=== PATIENT | female | born 1990 | race Caucasian/White ===

== ENCOUNTER 2017-05-03 20:07 | Emergency (ER) | payer OTHER, BC ==
[~2017-05-03] VITALS: Ht 162.6 cm; Wt 54.1 kg
[2017-05-03] MEDS ORDERED: LABETALOL HCL 100 MG/20 ML VIAL IV STA (20:44)
[2017-05-03] MEDS ORDERED: ACETAMINOPHEN TAB 650MG DOSE (2X325MG) PO ONE (20:45)
[2017-05-03 21:14] LABS: BASO % 0.4 % (0.0-1.0); EOS # 0.1 10^3/uL (0.0-0.50); EOS % 0.8 % (0.0-3.0); IMMATURE GRANULOCYTE % 0.3 % (0-0); LYMPH % 27.2 % (24.0-44.0); MEAN CORPUSCULAR HEMOGLOBIN 31.4 pg (27.0-33.0); MEAN CORPUSCULAR HGB CONC 34.4 g/dl (32.0-36.5); MEAN CORPUSCULAR VOLUME 91.3 fl (80.0-96.0); MONO # 0.7 10^3/uL (0.0-0.8); MONO % 9.8 % (0.0-5.0); NEUTROPHILS # 4.4 10^3/uL (1.8-7.7); NEUTROPHILS % 61.5 % (36.0-66.0); PLATELET COUNT, AUTOMATED 312 10^3/uL (150-450); WHITE BLOOD COUNT 7.2 10^3/uL (4.0-10.0)
[2017-05-03 21:32] LABS: CONTROL LINE HCG INT CTR LINE PRESENT
[2017-05-03 21:47] LABS: ANION GAP 10 MEQ/L (8-16); BLOOD UREA NITROGEN 18 MG/DL (7-18); CALCIUM LEVEL 9.3 MG/DL (8.5-10.1); CARBON DIOXIDE LEVEL 23 MEQ/L (21-32); CHLORIDE LEVEL 108 MEQ/L (98-107); GLOMERULAR FILTRATION RATE > 60.0 (>60); GLUCOSE, FASTING 103 MG/DL (70-105); POTASSIUM SERUM 3.5 MEQ/L (3.5-5.1); SODIUM LEVEL 141 MEQ/L (136-145)
[2017-05-03] MEDS ORDERED: ALPRAZolam 0.25 MG TAB PO ONE (22:15)
[2017-05-03] MEDS ORDERED: hydrALAZINE INJ 20 MG/ML VIAL IV ONE (23:00)
[2017-05-03] MEDS ORDERED: TENO1TAB3 PO (23:24)
[2017-05-03] MEDS ORDERED: ATENOLOL 25 MG TAB PO ONE (23:30)
[2017-05-03 23:40] VITALS: BP 187/103
[2017-05-03 23:44] VITALS: BP 167/93
--- NOTE | 2017-05-04 08:23 | REP ---
PA and lateral chest: There are no comparisons. The lung sanchez are clear. The cardiac size is normal The stephane, mediastinum, and bony thorax are unremarkable except for mild thoracic scoliosis. Impression: Negative PA and lateral chest. There is mild thoracic scoliosis. Signed by Edgar Salvador MD 05/04/2017 08:15 A
--- NOTE | 2017-05-04 09:11 | ECGEPIP ---
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
== END 2017-05-03 23:51 | disposition home or self-care (01) ==
LOC: M ED 20:07
DX: I10 Essential (primary) hypertension (principal)

== ENCOUNTER → 2017-07-31 | Outpatient (CLI) | payer BC, OTHER | LOC: M RAD 10:18 | DX: S12.691D Other nondisplaced fracture of seventh cervical vertebra, subsequent encounter for fracture with routine healing (principal); X58.XXXD Exposure to other specified factors, subsequent encounter | CPT/HCPCS: 72141 ==

== ENCOUNTER → 2017-08-17 | Outpatient (REF) | payer BC, OTHER | LOC: M SFHCLERA 15:39 | DX: R11.2 Nausea with vomiting, unspecified (principal) | CPT/HCPCS: 87086; Q9958 ==

== ENCOUNTER → 2018-04-13 | Outpatient (CLI) | payer OTHER | LOC: M LRY 11:45 | DX: R05 Cough (principal) ==

== ENCOUNTER → 2018-10-17 | Outpatient (CLI) | payer OTHER ==
[~2018-10-17] MED LIST: TENO1TAB3 PO
[2018-10-17 11:30] LABS: BASO % 0.4 % (0.0-1.0); EOS # 0.2 10^3/uL (0.0-0.50); HEMOGLOBIN 13.1 g/dl (12.0-15.5); LYMPH # 2.2 10^3/uL (1.5-6.5); LYMPH % 29.7 % (24.0-44.0); MEAN CORPUSCULAR HGB CONC 32.8 g/dl (32.0-36.5); MEAN CORPUSCULAR VOLUME 94.6 fl (80.0-96.0); MONO # 0.5 10^3/uL (0.0-0.8); MONO % 7.1 % (0.0-5.0); NEUTROPHILS # 4.5 10^3/uL (1.8-7.7); NEUTROPHILS % 60.7 % (36.0-66.0); PLATELET COUNT, AUTOMATED 264 10^3/uL (150-450); RED BLOOD COUNT 4.23 10^6/uL (4.00-5.40); WHITE BLOOD COUNT 7.4 10^3/uL (4.0-10.0)
[2018-10-17 11:49] LABS: ALBUMIN 3.9 GM/DL (3.2-5.2); ALT/SGPT 28 U/L (12-78); BILIRUBIN,TOTAL 0.4 MG/DL (0.2-1.0); BLOOD UREA NITROGEN 15 MG/DL (7-18); CALCIUM LEVEL 8.8 MG/DL (8.5-10.1); CARBON DIOXIDE LEVEL 25 MEQ/L (21-32); CHLORIDE LEVEL 110 MEQ/L (98-107); CORTISOL AM 19.9 UG/DL (4.3-22.4); CREATININE FOR GFR 0.87 MG/DL (0.55-1.30); FREE T3 2.7 PG/ML (2.2-4.0); FREE T4 0.93 NG/DL (0.76-1.46); GLOMERULAR FILTRATION RATE > 60.0 (>60); GLUCOSE, FASTING 83 MG/DL (70-100); POTASSIUM SERUM 4.1 MEQ/L (3.5-5.1); SODIUM LEVEL 140 MEQ/L (136-145); TOTAL 25(OH) VITAMIN D 20.7 NG/ML (30.0-100.0); TOTAL PROTEIN 6.5 GM/DL (6.4-8.2); VITAMIN B12 LEVEL 482 PG/ML (247-911)
== END ==
LOC: M LRY 08:29
PROVIDERS: ATTEND Nurse Practitioner Pediatrics
DX: F33.1 Major depressive disorder, recurrent, moderate (principal); F41.1 Generalized anxiety disorder

== ENCOUNTER → 2018-12-29 | Outpatient (CLI) | payer OTHER ==
[2018-12-29 17:13] LABS: C REACTIVE PROTEIN QUANTITATIV < 0.30 MG/DL (0.00-0.30); RHEUMATOID FACTOR QUANT < 10.0 IU/ML (<15.0)
[2018-12-29 17:17] LABS: BASO # 0.1 10^3/uL (0.0-0.2); BASO % 0.6 % (0.0-1.0); EOS # 0.1 10^3/uL (0.0-0.50); EOS % 1.6 % (0.0-3.0); HEMATOCRIT 44.4 % (36.0-47.0); HEMOGLOBIN 14.6 g/dl (12.0-15.5); LYMPH # 2.2 10^3/uL (1.5-6.5); LYMPH % 24.4 % (24.0-44.0); MEAN CORPUSCULAR HGB CONC 32.9 g/dl (32.0-36.5); MEAN CORPUSCULAR VOLUME 97.4 fl (80.0-96.0); MONO # 0.6 10^3/uL (0.0-0.8); NEUTROPHILS # 5.9 10^3/uL (1.8-7.7); NEUTROPHILS % 66.2 % (36.0-66.0); PLATELET COUNT, AUTOMATED 292 10^3/uL (150-450); RED BLOOD COUNT 4.56 10^6/uL (4.00-5.40); WHITE BLOOD COUNT 8.9 10^3/uL (4.0-10.0)
[2018-12-29 18:50] LABS: ERYTHROCYTE SEDIMENTATION RATE 3 mm/hr (0-20)
[2019-01-02 00:07] LABS: ANTI DOUBLE STRAND-DNA AB <1 IU/mL (0-9); ANTINUCLEAR ANTIBODIES DIRECT Positive (Negative); CYCLIC CITRULLINATED PEPTIDE 29 units (0-19); Lyme Disease IgG/IgM Antibodie <0.91 ISR (0.00-0.90); Lyme Disease IgM Ab Quantitati <0.80 index (0.00-0.79); RNP ANTIBODIES >8.0 AI (0.0-0.9); SJOGREN'S ANTI SS-A <0.2 AI (0.0-0.9); SJOGREN'S ANTI SS-B <0.2 AI (0.0-0.9); SMITH ANTIBODIES <0.2 AI (0.0-0.9)
== END ==
LOC: M SMT 13:38
PROVIDERS: ATTEND Physician Assistant
DX: A69.20 Lyme disease, unspecified (principal)

== ENCOUNTER 2019-01-19 20:47 | Emergency (ER) | payer OTHER ==
[~2019-01-19] VITALS: Ht 162.6 cm; Wt 56.8 kg
[2019-01-19] MEDS ORDERED: AMBI5TAB PO (21:06)
[2019-01-19] MEDS ORDERED: ALPR0.5T3 PO (21:06)
[2019-01-19] MEDS ORDERED: VITAD1000T PO (21:06)
[2019-01-19] MEDS ORDERED: BRIN10TA4 PO (21:06)
[2019-01-19] MEDS ORDERED: FISH1000 PO (21:06)
[2019-01-19] MEDS ORDERED: LABE100T36 PO (21:06)
[2019-01-20] MEDS ORDERED: NS 1,000 ML IV ONE (01:30)
[2019-01-20] MEDS ORDERED: ONDANSETRON 4MG/2ML VIAL (J2405) IV ONE (01:30)
[2019-01-20] MEDS ORDERED: KETOROLAC 30 MG/ML VIAL (J1885) IV ONE (01:30)
[2019-01-20 02:04] LABS: BASO % 0.2 % (0.0-1.0); EOS # 0.1 10^3/uL (0.0-0.50); EOS % 0.9 % (0.0-3.0); HEMATOCRIT 36.4 % (36.0-47.0); HEMOGLOBIN 12.1 g/dl (12.0-15.5); LYMPH # 2.1 10^3/uL (1.5-6.5); LYMPH % 22.9 % (24.0-44.0); MEAN CORPUSCULAR HEMOGLOBIN 32.3 pg (27.0-33.0); MEAN CORPUSCULAR HGB CONC 33.2 g/dl (32.0-36.5); MEAN CORPUSCULAR VOLUME 97.1 fl (80.0-96.0); MONO % 10.9 % (0.0-5.0); NEUTROPHILS % 64.9 % (36.0-66.0); PLATELET COUNT, AUTOMATED 239 10^3/uL (150-450); RED BLOOD COUNT 3.75 10^6/uL (4.00-5.40); WHITE BLOOD COUNT 9.2 10^3/uL (4.0-10.0)
[2019-01-20 02:20] LABS: HCG, SERUM QUALITATIVE NEGATIVE (NEGATIVE)
[2019-01-20 02:28] LABS: BLOOD UREA NITROGEN 13 MG/DL (7-18); CARBON DIOXIDE LEVEL 28 MEQ/L (21-32); CHLORIDE LEVEL 110 MEQ/L (98-107); CREATININE FOR GFR 0.85 MG/DL (0.55-1.30); GLOMERULAR FILTRATION RATE > 60.0 (>60); GLUCOSE, FASTING 89 MG/DL (70-100); POTASSIUM SERUM 3.7 MEQ/L (3.5-5.1); SODIUM LEVEL 144 MEQ/L (136-145)
[2019-01-20 02:29] LABS: ALBUMIN 3.7 GM/DL (3.2-5.2); ALT/SGPT 15 U/L (12-78); BILIRUBIN,DIRECT < 0.1 MG/DL (0.0-0.2); BILIRUBIN,TOTAL 0.2 MG/DL (0.2-1.0); TOTAL PROTEIN 6.4 GM/DL (6.4-8.2)
[2019-01-20] MEDS ORDERED: ISOVUE-370 76% 100ML VIAL (Q9967) As Ordered ONE (02:39)
[2019-01-20] MEDS ORDERED: ceFAZolin SOD 1 GM in D5W MINI-BAG PLUS 50 ML IV ONE (03:00)
[2019-01-20] MEDS ORDERED: ACETAMINOPHEN 325 MG TAB PO ONE (04:15)
--- NOTE | 2019-01-20 04:22 | REPVR ---
EXAM: CT Left Lower Extremity With Contrast, Knee EXAM DATE/TIME: 01/20/2019 2:49 AM CLINICAL HISTORY: 28 years old, female; Cellulitis; Knee; Left; Additional info: Cellulitis, concern septic joint, pls use contrast. 100ml of isovue [address] was injected [address] left knee with contrast TECHNIQUE: Imaging protocol: CT of the Left lower extremity with intravenous contrast was performed. Exam focused on the knee. Coronal and sagittal reformatted images were created and reviewed. Radiation optimization: All CT scans at this facility use at least one of these dose optimization techniques: automated exposure control; mA and/or kV adjustment per patient size (includes targeted exams where dose is matched to clinical indication); or iterative reconstruction. COMPARISON: No relevant prior studies available. FINDINGS: Alignment at the knee is maintained. No asymmetric joint space loss is seen. No acute fracture. No periosteal reaction or bone destruction. No radiopaque soft tissue foreign body seen. There is skin thickening and subcutaneous soft tissue swelling and reticulations with slight hypervascularity, involving the anterior half of the leg beginning just above the patellofemoral joint and extending below the level of imaging, which may be consistent with edema and/or cellulitis. This appears to be most pronounced anterior to the proximal tibia. There is no evidence of an abscess collection. No soft tissue gas is seen. There is mild superficial fascial thickening and edema which may represent fasciitis. Trace amount of fluid is seen within the suprapatellar bursa. Septic involvement of the knee joint cannot be excluded by imaging. This must be assessed by aspiration and culture. No evidence of major vascular compromise is seen across the level of the knee. IMPRESSION: Findings are consistent with edema and/or cellulitis across the anterior leg, extending below with imaging. No soft tissue gas or fluid collection is seen. Mild superficial fasciitis is suspected. Other findings and recommendations discussed above. Electronically signed by: Juancarlos Adames On 01/20/2019 04:22:13 AM
[2019-01-20 04:36] LABS: C REACTIVE PROTEIN QUANTITATIV 1.26 MG/DL (0.00-0.30)
[2019-01-20 04:41] LABS: ERYTHROCYTE SEDIMENTATION RATE 12 mm/hr (0-20)
[2019-01-20] MEDS ORDERED: KEFL500C17 PO (07:11)
[2019-01-20 07:38] VITALS: BP 139/84
--- NOTE | 2019-01-20 22:28 | ER ---
DATE OF CONSULT: 01/20/2019 Time: 7:00 a.m. CHIEF COMPLAINT: Left knee redness and swelling. HISTORY OF PRESENT ILLNESS: A 28-year-old female seen today in emergency department at [facility] in the [facility] area at 7:00 a.m. on 01/20/2019. She was consulted by me for pain and swelling about the knee. She states this happened insidiously over the last 2 days. She was initially seen at a different emergency department. Over the last 2 days, this became red and swollen. She feels like now just recently there is a small area on the front of her knee with some clear fluid drainage. She has never had anything like this before, although she did have some knee problems in the past and was apparently diagnosed with rheumatoid arthritis, although waiting to see a provider for that. A consult has been put into rheumatology. Otherwise, she appears to have minimal constitutional symptoms. No fever, chills, sweats at night, problems with nausea, vomiting or any other warm swollen joints. PAST HISTORY: Includes hypertension related to preeclampsia from previous . 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 MEDICATIONS: Include labetalol and question vitamin D and fish oil capsules. SURGICAL HISTORY: Tonsillectomy, stent in her right kidney that was subsequently removed for kidney stones, as well as breast augmentation. SOCIAL HISTORY: She is a tdom-yw-wley mother. She has two children. She is nonsmoker. She does not use illicit drugs or intravenous (IV) drugs. PHYSICAL EXAMINATION: 28-year-old female in no acute distress. She was sleeping comfortably when I entered the room. She arouses easily. She is alert and oriented times three. Vital signs: Her highest recorded temperature on this visit was 98.2. When I saw her this morning, temperature 96.8. Blood pressure 139/84. Pulse rate 66. Respiration rate 14. 100% on room air. She is able to ambulate with a little bit of antalgic gait. There is no other hot, swollen joints. Examination of the lower extremities reveals some mild to moderate redness in the anterior aspect of the knee, just in front of the patellar tendon and patella. There is indeed a small pinhole size area draining a very small amount of clear fluid. No fluctuant collections below this. The tissues are a little bit indurated. It is painful to light touch. It is warm. The knee has good range of motion and is minimally tender to do this aside from deep flexion. Range of motion 0 to 100 degrees. There is perhaps a small effusion. Anterior cruciate ligament (ACL), posterior cruciate ligament (PCL), medial collateral ligament (MCL), and lateral collateral ligament (LCL) all stable and solid at 0 and 30 degrees. No findings on the contralateral side. Distally, she is neurovascularly intact with normal sensation throughout the feet. Good pedal pulses. She is able to wiggle her toes, dorsiflex and plantarflex her foot. Laboratory examination today reveals CRP 1.26. Beta hCG is negative. White blood cell count 9.2. ESR 12. Neutrophil percentage 64.9, lymphocyte percentage elevated 22.9, monocyte percentage 10.9. Aspirate was performed. This showed approximately 2 or 3 mL of clear fluid that appears to be joint fluid. No purulence. No smell. This was sent for Gram stain, culture and sensitivity, synovial fluid analysis, as well as a rheumatoid factor if able. Initial results from this morning reveal no cells seen, no organisms seen. There is no further analysis performed on the sample, possibly due to low sample volume. PROCEDURE NOTE: Aspiration pros and cons, risks and benefits were discussed with Shraddha. Specific risks include but not limited to infection, pain, bleeding and other risks. I prepped the superolateral aspect of the left knee with the alcohol swab. I placed the patient supine on the examining bed. Bump was placed under the left knee. I used a 21-gauge 1-1/2 inch long needle with a 30 mL syringe. I aspirated the knee through the superolateral aspect of the knee after the alcohol had thoroughly dried. I aspirated approximately 2 to 3 mL of clear normal joint appearing fluid. I placed a bandage on afterwards on the skin. ASSESSMENT AND PLAN: This 28-year-old female appears to have an infected prepatellar bursitis. I am not concerned that this is an intra-articular infection or a septic joint. For now, she does not appear to be septic either per her vital signs or blood work. She appears to be stable. She has been started on Ancef, and I recommended outpatient course of 5 to 7 days at least of oral Keflex 500 mg by mouth four times a day. Follow up on Wednesday. I gave her my card. I asked to see her on Wednesday to reassess and reevaluate. Certainly if this gets worse or if she develops other symptoms, to return to the emergency department or call the office to reach the surgeon telemetry monitor. For now, no role for acute irrigation and debridement. We will see how this is treated with oral antibiotics. I did warn her that sometimes this tends to get a little bit more red and painful within the first 24 hours after initiating antibiotics. Looking forward to seeing her in followup. These results were communicated to Dr. Davis as well, her emergency room physician.
== END 2019-01-20 07:42 | disposition home or self-care (01) ==
LOC: M ED 20:47
DX: L03.116 Cellulitis of left lower limb (principal); I10 Essential (primary) hypertension; Z79.899 Other long term (current) drug therapy
CPT/HCPCS: 20610; 73701; 80048; 80076; 83605; 84703; 85025; 85652; 86140; 87040; 87070; 87205; 96374; 96375; 99284; G0463; J0690; J1885; J2405; Q9967

== ENCOUNTER → 2020-01-18 | Outpatient (CLI) | payer OTHER ==
[~2020-01-18] MED LIST changes: +ALPR0.5T3 PO; +AMBI5TAB PO; +BRIN10TA4 PO; +CHOL100029 PO; +FISH1000 PO; +KEFL500C17 PO; +LABE100T36 PO
[2020-01-18 13:01] LABS: BASO % 0.7 % (0.0-1.0); EOS # 0.2 10^3/uL (0.0-0.5); EOS % 4.3 % (0.0-3.0); HEMATOCRIT 43.1 % (36.0-47.0); HEMOGLOBIN 14.3 g/dl (12.0-15.5); LYMPH % 37.5 % (24.0-44.0); MEAN CORPUSCULAR HEMOGLOBIN 32.6 pg (27.0-33.0); MEAN CORPUSCULAR HGB CONC 33.2 g/dl (32.0-36.5); MEAN CORPUSCULAR VOLUME 98.4 fl (80.0-96.0); MONO # 0.5 10^3/uL (0.0-0.8); MONO % 8.7 % (0.0-5.0); NEUTROPHILS # 2.6 10^3/uL (1.5-8.5); NEUTROPHILS % 48.4 % (36.0-66.0); PLATELET COUNT, AUTOMATED 250 10^3/uL (150-450); RED BLOOD COUNT 4.38 10^6/uL (4.00-5.40); WHITE BLOOD COUNT 5.4 10^3/uL (4.0-10.0)
[2020-01-18 13:51] LABS: ALBUMIN 3.9 GM/DL (3.2-5.2); ALT/SGPT 25 U/L (12-78); BLOOD UREA NITROGEN 11 MG/DL (7-18); CALCIUM LEVEL 9.1 MG/DL (8.5-10.1); CARBON DIOXIDE LEVEL 25 MEQ/L (21-32); CHLORIDE LEVEL 108 MEQ/L (98-107); CREATININE FOR GFR 1.03 MG/DL (0.55-1.30); FREE T4 0.89 NG/DL (0.76-1.46); GLOMERULAR FILTRATION RATE > 60.0 (>60); GLUCOSE, FASTING 81 MG/DL (70-100); SODIUM LEVEL 141 MEQ/L (136-145); THYROID STIMULATING HORMONE 0.898 uIU/ML (0.358-3.740); TOTAL PROTEIN 6.8 GM/DL (6.4-8.2)
== END ==
LOC: M PLALAB 08:54
PROVIDERS: ATTEND Physician Assistant
DX: R53.83 Other fatigue (principal)

== ENCOUNTER → 2020-03-29 | Outpatient (CLI) | payer OTHER ==
[2020-03-29 14:21] LABS: BASO % 0.8 % (0.0-1.0); EOS # 0.1 10^3/uL (0.0-0.5); EOS % 1.8 % (0.0-3.0); HEMATOCRIT 45.3 % (36.0-47.0); HEMOGLOBIN 15.1 g/dl (12.0-15.5); LYMPH # 1.7 10^3/uL (1.5-5.0); MEAN CORPUSCULAR HEMOGLOBIN 31.9 pg (27.0-33.0); MEAN CORPUSCULAR HGB CONC 33.3 g/dl (32.0-36.5); MEAN CORPUSCULAR VOLUME 95.8 fl (80.0-96.0); MONO # 0.4 10^3/uL (0.0-0.8); MONO % 8.1 % (0.0-5.0); NEUTROPHILS # 2.7 10^3/uL (1.5-8.5); NEUTROPHILS % 54.1 % (36.0-66.0); PLATELET COUNT, AUTOMATED 293 10^3/uL (150-450); RED BLOOD COUNT 4.73 10^6/uL (4.00-5.40); WHITE BLOOD COUNT 4.9 10^3/uL (4.0-10.0)
[2020-03-29 14:34] LABS: APPEARANCE, URINE HAZY (CLEAR); BACTERIA, URINE AUTO 1+ (NEGATIVE); BILIRUBIN, URINE AUTO NEGATIVE (NEGATIVE); BLOOD, URINE BLOOD NEGATIVE (NEGATIVE); CALCIUM OXALATE CRYSTALS SMALL; COLOR, URINE YELLOW (YELLOW); GLUCOSE, URINE (UA) AUTO NEGATIVE (NEGATIVE); KETONE, URINE AUTO NEGATIVE (NEGATIVE); LEUKOCYTE ESTERASE, URINE AUTO NEGATIVE (NEGATIVE); MUCUS, URINE SMALL (NEGATIVE); NITRITE, URINE AUTO NEGATIVE (NEGATIVE); PROTEIN, URINE AUTO NEGATIVE (NEGATIVE); RBC, URINE AUTO 0 /HPF (0-3); SPECIFIC GRAVITY URINE AUTO 1.016 (1.002-1.035); SQUAMOUS EPITHELIAL CELL UR AU 13 /HPF (0-6); UROBILINOGEN, URINE AUTO 0.2 mg/dL (0.0-2.0); WBC, URINE AUTO 1 /HPF (0-3)
[2020-03-29 14:45] LABS: TOTAL PROTEIN,RANDOM URINE 17.5 MG/DL (0.0-12.0)
[2020-03-29 14:47] LABS: ALBUMIN 3.9 GM/DL (3.2-5.2); ALT/SGPT 21 U/L (12-78); BILIRUBIN,DIRECT 0.2 MG/DL (0.0-0.2); BILIRUBIN,TOTAL 0.7 MG/DL (0.2-1.0); BLOOD UREA NITROGEN 13 MG/DL (7-18); CALCIUM LEVEL 9.5 MG/DL (8.5-10.1); CARBON DIOXIDE LEVEL 26 MEQ/L (21-32); CHLORIDE LEVEL 106 MEQ/L (98-107); COMPLEMENT C3 70 MG/DL (90-180); COMPLEMENT C4 18 MG/DL (10-40); CREATININE FOR GFR 0.89 MG/DL (0.55-1.30); GLOMERULAR FILTRATION RATE > 60.0 (>60); GLUCOSE, FASTING 88 MG/DL (70-100); IRON (FE) 138 UG/DL (50-170); POTASSIUM SERUM 4.1 MEQ/L (3.5-5.1); RHEUMATOID FACTOR QUANT < 10.0 IU/ML (<15.0); SODIUM LEVEL 140 MEQ/L (136-145); TOTAL PROTEIN 6.7 GM/DL (6.4-8.2)
[2020-03-29 15:09] LABS: ERYTHROCYTE SEDIMENTATION RATE 1 mm/hr (0-20)
[2020-04-01 10:26] LABS: TOTAL 25(OH) VITAMIN D 31.6 NG/ML (30.0-100.0)
--- NOTE | 2020-04-02 14:56 | REPPI ---
STANDING AP BILATERAL KNEES HISTORY: Pain. TECHNIQUE: A single AP standing view of the bilateral knees is performed. FINDINGS: The bones appear normal with no fracture, dislocation, or intrinsic bone disease. Threshold joint spaces appear well preserved without significant arthritic change. IMPRESSION: Negative exam of standing AP knees. MTDD
--- NOTE | 2020-04-02 14:57 | REPPI ---
BILATERAL ANKLE SERIES HISTORY: Joint pain. TECHNIQUE: Four views of each ankle are performed. FINDINGS: I see no evidence of acute fracture, dislocation, or intrinsic bone disease bilaterally. The ankle mortise is anatomic bilaterally. No joint space narrowing is seen. No calcaneal spurring is seen. IMPRESSION: Unremarkable exam bilateral ankles. MTDD
--- NOTE | 2020-04-02 14:58 | REPPI ---
BILATERAL HAND SERIES: 8-VIEWS HISTORY: Joint pain. FINDINGS: Four views of each hand demonstrate overall normal mineralization. Joint spaces are preserved. No erosive changes are seen on either side. Soft tissues are unremarkable. IMPRESSION: Negative radiographs of the hands bilaterally. MTDD
--- NOTE | 2020-04-02 14:58 | REPPI ---
BILATERAL WRIST SERIES: 4-VIEWS HISTORY: Joint pain. FINDINGS: Four views of each wrist show overall normal mineralization. Joint spaces are preserved. Periarticular soft tissues are unremarkable. No erosive changes seen. IMPRESSION: Negative radiographs of bilateral wrists. MTDD
[2020-04-03 11:21] LABS: DRVV SCREEN 39.7 SEC
[2020-04-03 15:12] LABS: ANA (HEP2) Negative (.); ANTI CENTROMERE ANTIBODY <0.2 AI (0.0-0.9); ANTI DS-DNA AB Negative (Negative); ANTI SCLERODERMA ANTIBODIES <0.2 AI (0.0-0.9); ANTI-HISTONE ANTIBODIES 1.5 Units (0.0-0.9); BETA-2 GLYCOPROTEIN I ABY IGA <9 (0-25); BETA-2 GLYCOPROTEIN I ABY IGG <9 (0-20); BETA-2 GLYCOPROTEIN I ABY IGM 19 (0-32); CARDIOLIPIN IGA ANTIBODY <9 APL U/mL (0-11); CARDIOLIPIN IGG ANTIBODY <9 GPL U/mL (0-14); CARDIOLIPIN IGM ANTIBODY 27 MPL U/mL (0-12); COMPLEMENT TOTAL (CH50) 55 U/mL (>41); CYCLIC CITRULLINATED PEPTIDE 4 units (0-19); RNP ANTIBODY 0.3 AI (0.0-0.9); SMITHS ANTIBODY < 0.2 AI (0.0-0.9); SSA SJOGRENS A <0.2 AI (0.0-0.9); SSB SJOGRENS B <0.2 AI (0.0-0.9)
== END ==
LOC: M PLAIMG 10:55
PROVIDERS: ATTEND Internal Medicine
DX: R76.8 Other specified abnormal immunological findings in serum (principal); R76.0 Raised antibody titer; R53.83 Other fatigue; M25.50 Pain in unspecified joint; M25.40 Effusion, unspecified joint

== ENCOUNTER → 2020-04-26 | Outpatient (REF) | payer OTHER | LOC: M LAB REF 14:48 | PROVIDERS: ATTEND Physician Assistant | DX: N23 Unspecified renal colic (principal) ==